=== PATIENT | female | born 1975 | race Two or more races ===

== ENCOUNTER 2016-04-01 11:40 | Emergency (ER) | payer OTHER ==
[2016-04-01 12:08] VITALS: BP 128/81; TEMP 98.1
--- NOTE | 2016-04-01 12:13 | CPEKG ---
Heart Rate: 70 RR Interval: 857 P-R Interval: 112 QRSD Interval: 74 QT Interval: 396 QTC Interval: 428 P Bethel: 38 QRS Bethel: 52 T Wave Bethel: 56 EKG Severity - NORMAL ECG - EKG Impression: SINUS RHYTHM Electronically Signed By: Brendan Harding 01-Apr-2016 14:00:39
--- NOTE | 2016-04-01 12:30 | UCPHY ---
H & P Time Seen by Provider: 04/01/16 12:08 Patient Type: New HPI/ROS: This patient complains of anxiety. She takes Celexa now for 2 months for her anxiety but reports worsening symptoms today. She admits smoking marijuana daily recently including this morning. She also drank 20 oz of coffee which is more than usual for her. Along with his anxiety she has of mild feeling of shortness of breath, lightheadedness and nausea. ROS: No fevers or chills. She reports no headache. She has no other HEENT complaints. She reports no pulmonary symptoms other than the mild dyspnea. No coughing. Cardiovascular: She complains of feeling of racing heart. She reports that this symptom came on gradually. She had mild lightheadedness but no syncope or presyncope. No diaphoresis. No chest pain. No lower extremity swelling or calf pain. GI: No nausea or vomiting. 10 point ROS is otherwise negative Past Medical/Surgical History: Anxiety. Social History: She admits smoking marijuana or daily recently. No cocaine. She drinks a beer a day on average. She has occasional cigarettes. No other recreational drugs. She does drink coffee-20 onset this morning more than usual Smoking Status: Current some day smoker Physical Exam: General Appearance: Alert, no distress. Eyes: Pupils equal and round no pallor or injection. ENT, Mouth: Mucous membranes moist. Respiratory: There are no retractions, lungs are clear to auscultation. Cardiovascular: Regular rate and rhythm. No murmur gallop rub. No JVD. No peripheral edema. No calf tenderness Gastrointestinal: Abdomen is soft and nontender, no masses, bowel sounds normal. Neurological: Alert with no deficits. Skin: Warm and dry, no rashes. Musculoskeletal: Neck is supple nontender. Extremities are symmetrical, full range of motion. Psychiatric: Mildly anxious. No pressured speech. She maintains logical thought content. No psychotic symptoms. DIFFERENTIAL DIAGNOSIS: After history and physical exam differential diagnosis was considered for anxiety, side effects of marijuana, rule out dysrhythmia Constitutional: Initial Vital Signs Temperature (C) 36.7 C 04/01/16 12:02 Heart Rate 85 04/01/16 12:02 Respiratory Rate 20 04/01/16 12:02 Blood Pressure 128/81 H 04/01/16 12:02 O2 Sat (%) 97 04/01/16 12:02 O2 Delivery Mode Room Air Allergies/Adverse Reactions: No Known Allergies Allergy (Unverified 04/01/16 12:08) Home Medications: Medication Instructions Recorded Citalopram 04/01/16 Propranolol HCl [Inderal 10mg (*)] 10 - 20 mg PO BID PRN #20 tab 04/01/16 MDM/Departure - MDM Diagnostics: 12 lead EKG performed shortly after arrival at 12:11 p.m. reveals sinus rhythm at 70 Intervals: Normal throughout [place]: Normal throughout ST segments: Normal throughout Overall assessment normal EKG Medications Given: Discontinued Medications Ondansetron HCl (Zofran Odt) 4 mg PO EDNOW ONE Stop: 04/01/16 12:46 Last Admin: 04/01/16 12:45 Dose: 4 mg ED Course/Re-evaluation: Counseled the patient regarding marijuana as potential to cause anxiety encouraged her to stop marijuana for least appeared of time. Also counseled her to stop alcohol for. Times and she is having daily use at this time. Will try propranolol if needed for panic episodes. Also described the importance of daily exercise, relaxation. She will follow up with her therapist. Not think she has a primary cardiac dysrhythmia. She remained stable on the monitor throughout her course here without any significant ectopy. - Depart Disposition: Home, Routine, Self-Care Clinical Impression: Anxiety Condition: Good Instructions: Anxiety (ED) Additional Instructions: Diagnosis: Anxiety Plan: Quit marijuana Give yourself windows of time (at least 2-3 days a week) away from alcohol. Daily exercise for 20-30 minutes Daily relaxation for 20-30 minutes or more Propranolol if needed for panic attacks or anxiety episodes. Follow up with her therapist Return for any significant worsening despite the treatment plan. Prescriptions: Propranolol HCl [Inderal 10mg (*)] 10 - 20 mg PO BID PRN #20 tab PRN Reason: Anxiety Referrals: ESTEBAN,STERLING [Other] - As per Instructions - PQRS PQRS Measurement: NA
[2016-04-01] MEDS ORDERED: ONDANSETRON DISINTEGRATING 4 MG TAB PO ONE (12:45)
[2016-04-01] MEDS ORDERED: ONDANSETRON DISINTEGRATING 4 MG TAB ONE (12:47)
[2016-04-01 13:23] VITALS: PULSE 70; RESP 16; O2SAT 98
== END 2016-04-01 13:23 | disposition home or self-care (01) ==
LOC: CED 11:40
DX: F41.1 Generalized anxiety disorder (principal); F12.90 Cannabis use, unspecified, uncomplicated
CPT/HCPCS: 93010-PO; 99203-PO; G0463-PO